=== PATIENT | female | born 2000 | race Caucasian/White ===

== ENCOUNTER 2022-09-04 17:30 | Emergency (ER) | payer BC ==
[~2022-09-04] VITALS: Ht 157.5 cm; Wt 54.4 kg
[2022-09-04 17:53] VITALS: BP 128/85
--- NOTE | 2022-09-04 19:08 | NUR ---
22/F PRESENTS TO ED FOR SUTURE REMOVAL. PATIENT REPORTS SHE HAD SUTURES PLACE TO LEFT EYEBROW 1 WEEK AGO AT [facility]. DENIES WORSENING PAIN, DISCHARGE, TENDERNESS, FEVERS OR CHILLS.
--- NOTE | 2022-09-04 19:25 | NUR ---
Pt report given to FIONA RN. Transfer of care at this time.
[2022-09-04] MEDS ORDERED: BACI-416 TP (19:32)
--- NOTE | 2022-09-04 19:40 | NUR ---
patient left without discharge paperwork.
== END 2022-09-04 19:40 | disposition home or self-care (01) ==
LOC: MED 17:30
DX: S01.21XD Laceration without foreign body of nose, subsequent encounter (principal); Z48.02 Encounter for removal of sutures; W10.8XXD Fall (on) (from) other stairs and steps, subsequent encounter
CPT/HCPCS: 99282

== ENCOUNTER 2023-01-01 20:29 | Emergency (ER) | payer BC ==
[~2023-01-01] VITALS: Ht 165.1 cm; Wt 59.0 kg
[~2023-01-01 20:29] MED LIST: BACI-418 TP; DOXY-487 PO
[2023-01-01 20:41] VITALS: BP 111/73; PULSE 95; RESP 17; TEMP 98; O2SAT 100
--- NOTE | 2023-01-01 20:44 | NUR ---
TO LOBBY A/W BED AMBULATORY
== END 2023-01-01 22:05 | disposition left against medical advice (07) ==
LOC: MED 20:29
DX: L02.413 Cutaneous abscess of right upper limb (principal); Z53.21 Procedure and treatment not carried out due to patient leaving prior to being seen by health care provider
CPT/HCPCS: 99281

== ENCOUNTER 2023-01-26 02:23 | Emergency (ER) | payer BC ==
[~2023-01-26] VITALS: Ht 160 cm; Wt 54.4 kg
[2023-01-26 02:40] VITALS: BP 118/56; PULSE 92; RESP 17; TEMP 97.8; O2SAT 98
[2023-01-26 03:10] VITALS: BP 118/56; PULSE 92; RESP 17; TEMP 97.8; O2SAT 98
== END 2023-01-26 03:08 | disposition home or self-care (01) ==
LOC: MED 02:23
DX: S01.01XD Laceration without foreign body of scalp, subsequent encounter (principal); Z79.899 Other long term (current) drug therapy; X58.XXXD Exposure to other specified factors, subsequent encounter
CPT/HCPCS: 99281